=== PATIENT | female | born 1960 | race American Indian/Alaskan Native ===

== ENCOUNTER 2016-11-27 01:26 | Emergency (ER) | payer BC ==
[2016-11-27] MEDS ORDERED: XYLOCAINE 2%/ EPI 1:200,000 INFILTRATI ONE (02:17)
[2016-11-27] MEDS ORDERED: NACL 0.9% 500 ML IR ONE (02:20)
[2016-11-27] MEDS ORDERED: NACL 0.9% IR ONE (02:33)
[2016-11-27] MEDS ORDERED: XYLOCAINE 2%/EPI 1:100,000 INFILTRATI ONE (02:34)
[2016-11-27] MEDS ORDERED: BOOSTRIX IM ONE ×2 (05:47)
--- NOTE | 2016-11-27 06:41 | Emergency Department Report ---
ED Laceration HPI - HPI Chief Complaint: Wound/Laceration Stated Complaint: LACERATION TO RT LEG Time Seen by Provider: 11/27/16 05:17 Occurred When: Today Location: Lower Extremity Tetanus Status: Unknown Laceration Symptoms: Yes Pain, No Foreign Body Sensation, No Numbness, No Weakness Other History: Patient comes into the ER today with complaints of a laceration to her right lower leg after cutting it on the edge of a broken toilet. Patient is unsure of her last tetanus shot. Patient denies any other complaints other than the laceration. ED Review of Systems ROS: Stated complaint: LACERATION TO RT LEG Other details as noted in HPI Constitutional: denies: chills, fever Eyes: denies: eye pain, eye discharge, vision change ENT: denies: ear pain, throat pain Respiratory: denies: cough, shortness of breath, wheezing Cardiovascular: denies: chest pain, palpitations Endocrine: no symptoms reported Gastrointestinal: denies: abdominal pain, nausea, diarrhea Genitourinary: denies: urgency, dysuria, discharge Musculoskeletal: denies: back pain, joint swelling, arthralgia Skin: denies: rash, lesions Neurological: denies: headache, weakness, paresthesias Psychiatric: denies: anxiety, depression Hematological/Lymphatic: denies: easy bleeding, easy bruising ED Past Medical Hx - Past Medical History Previous Medical History?: Yes Hx Hypertension: Yes - Surgical History Past Surgical History?: No - Social History Smoking Status: Never Smoker Substance Use Type: None - Medications Home Medications: Home Medications Medication Instructions Recorded Confirmed Last Taken Type Cephalexin [Keflex] 500 mg PO TID #30 capsule 11/27/16 Unknown Rx Norvasc 10 mg PO DAILY 11/27/16 11/27/16 1 Day Ago History traMADol [Ultram 50 MG tab] 50 mg PO Q6HR PRN #20 tablet 11/27/16 Unknown Rx Laceration Physical Exam - Exam General: Vital signs noted. No distress. Alert and acting appropriately. Patient is alert and oriented 3, in no acute distress. Patient is in no respiratory distress, no joint tenderness noted. Patient does have a 7 cm laceration noted to the right lower leg. Laceration is subcutaneous with exposed adipose tissue. Laceration is linear with small flap at one in. No underlying tendon, muscle tissue exposed. Patient is neurologically and vascularly intact distal to injury. Wound Length (cm): 7 Laceration Location: Lower Extremity Laceration Exam: Yes Normal Distal CMS, No Foreign Body, No Exposed Tendon, Vessel, or Nerve, No Tendon Injury ED Course Vital Signs 11/27/16 01:49 Temperature 98.6 F Pulse Rate 69 Respiratory 20 Rate Blood Pressure 147/107 O2 Sat by Pulse 99 Oximetry - Laceration /Wound Repair Right Lower Lateral Calf Wound Location: lower extremity Wound Length (cm): 7 Wound's Depth, Shape: linear, flap Wound Explored: clean Irrigated w/ Saline (ccs): 60 Betadine Prep?: Yes Anesthesia: Lidocaine w/ Epi Volume Anesthetic (ccs): 14 Wound Repaired With: sutures Suture Size/Type: 3:0, proline Number of Sutures: 14 Layer Closure?: No Sterile Dressing Applied?: Yes Progress: Patient tolerated procedure well without any complications. Laceration actually consisted of 13 sutures of a running stitch with one single simple skin suture on proximal in. ED Medical Decision Making - Medical Decision Making She is nontoxic and hemodynamically stable. Patient tolerated procedure well without any complications. Wound was dressed and bandaged with nonadherent and cold band. Patient was given an updated tetanus here in the ER today. Start patient on antibiotics for prophylactic infection and patient is instructed to return to the ER in 10 days for suture removal. Patient is stable for discharge and is agreement with treatment plan. Critical care attestation.: If time is entered above; I have spent that time in minutes in the direct care of this critically ill patient, excluding procedure time. ED Disposition Clinical Impression: Laceration of right lower leg Disposition: DISCHARGED TO HOME OR SELFCARE Is pt being admited?: No Does the pt Need Aspirin: No Condition: Good Instructions: Laceration (ED) Prescriptions: Cephalexin [Keflex] 500 mg PO TID #30 capsule traMADol [Ultram 50 MG tab] 50 mg PO Q6HR PRN #20 tablet PRN Reason: Pain Referrals: [facility] [place], ER [Other] - 12/07/16 (For suture removal) Time of Disposition: 06:44
[2016-11-27 06:58] VITALS: BP 146/87
== END 2016-11-27 06:57 | disposition home or self-care (01) ==
LOC: ED 01:26
DX: S81.811A Laceration without foreign body, right lower leg, initial encounter (principal); I10 Essential (primary) hypertension; W26.8XXA Contact with other sharp object(s), not elsewhere classified, initial encounter; Y93.89 Activity, other specified; Y92.89 Other specified places as the place of occurrence of the external cause; Y99.8 Other external cause status
CPT/HCPCS: 90471; 90715